=== PATIENT | male | born 1960 | race Caucasian/White ===

== ENCOUNTER 2016-05-04 07:05 | Emergency (ER) | payer OTHER ==
[2016-05-04 09:01] LABS: Hematocrit 43 % (42-52); Hemoglobin 14.4 g/dl (14.0-18.0); Mean Corpuscular HGB Conc 34 g/dl (31-36); Mean Corpuscular Hemoglobin 29 pg (27-31); Mean Corpuscular Volume 86 fL (80-94); Mean Platelet Volume 8 um3 (7.4-10.4); Red Blood Count 4.95 10^6/ul (4.0-5.4); Red Cell Distribution Width 14 % (10.5-15); White Blood Count 5.7 10^3/ul (3.5-10.8)
[2016-05-04 09:11] LABS: Urine Bilirubin Negative (Negative); Urine Glucose Negative (Negative); Urine Nitrite Negative (Negative)
[2016-05-04 09:19] LABS: BUN/Creatinine Ratio 24.5 (8-20); C Reactive Protein 2.46 mg/L (< 5.00); Calcium 9.3 mg/dL (8.6-10.3); EGFR Non-African American 82.4 (>60); Globulin 2.9 g/dL (2-4); Total Bilirubin 0.5 mg/dL (0.2-1.0); Total Protein 6.9 g/dL (6.4-8.9)
[2016-05-04 09:37] VITALS: BP 123/76
--- NOTE | 2016-05-04 10:36 | ED ---
Tamara Pinedo Rebecca, scribed for Etienne Rand MD on 05/04/16 at 0741 . Throat Pain/Nasal Congestion - HPI Summary HPI Summary: Pt is a 56 y/o M BIBA who presents to ED c/o throat tightening, difficulty swallowing and mild SOB. Sx began suddenly this morning at 0600 and have been constant since onset. Sx improved approximately 30 minutes after onset. Sx aggravated by nothing, spontaneously improved but still slightly present. Additionally c/o mild sore throat. Denies N/V, fever, pruritis, swelling of the tongue and lips. No PMHx. No daily medications. Denies being exposed to anything novel this morning. - History of Current Complaint Chief Complaint: EDThroatPain Time Seen by Provider: 05/04/16 07:39 Hx Obtained From: Patient Onset/Duration: Sudden Onset, Lasting Hours - 2 hours ago, Still Present Severity: Mild Associated Signs And Symptoms: Positive: Dysphagia Cough: None - Allergies/Home Medications Allergies/Adverse Reactions: Allergies Allergy/AdvReac Type Severity Reaction Status Date / Time swedish dressing Allergy Diaphoresis Uncoded 05/04/16 07:29 Home Medications: Home Medications NK [No Home Medications Reported] 05/04/16 [History Confirmed 05/04/16] PMH/Surg Hx/FS Hx/Imm Hx Previously Healthy: Yes Endocrine/Hematology History: Denies: Hx Diabetes Cardiovascular History: Denies: Hx Hypercholesterolemia, Hx Hypertension - Surgical History Surgery Procedure, Year, and Place: KNEE SURGERY. ANKLE SURGERY Infectious Disease History: No Infectious Disease History: Denies: Traveled Outside the [place] in Last 30 Days - Family History Known Family History: Positive: Hypertension Negative: Diabetes - Social History Alcohol Use: None Substance Use Type: Reports: None Smoking Status (MU): Never Smoked Tobacco Review of Systems Negative: Fever Positive: Sore Throat - mild, Other - Dysphagia, throat tightening; Denies tongue or lip swelling Positive: Shortness Of Breath - mild Negative: Vomiting, Nausea Positive: Other - Denies pruritis All Other Systems Reviewed And Are Negative: Yes Physical Exam Triage Information Reviewed: Yes Vital Signs On Initial Exam: Initial Vitals Temp Pulse Resp BP Pulse Ox 98.3 F 53 14 149/86 96 05/04/16 07:10 05/04/16 07:10 05/04/16 07:10 05/04/16 07:10 05/04/16 07:10 Vital Signs Reviewed: Yes Appearance: Positive: Well-Appearing Skin: Positive: Warm, Skin Color Reflects Adequate Perfusion, Dry Head/Face: Positive: Normal Head/Face Inspection Eyes: Positive: EOMI, JACQUELYN ENT: Positive: Normal ENT inspection Neck: Positive: Supple, Nontender Respiratory/Lung Sounds: Positive: Clear to Auscultation, Breath Sounds Present Cardiovascular: Positive: RRR, Pulses are Symmetrical in both Upper and Lower Extremities Abdomen Description: Positive: Nontender, Soft Bowel Sounds: Positive: Present Musculoskeletal: Positive: Normal, Strength/ROM Intact Neurological: Positive: Normal, Sensory/Motor Intact, Alert, Oriented to Person Place, Time Psychiatric: Positive: Normal, Affect/Mood Appropriate - [place] Coma Scale Coma Scale Total: 15 Diagnostics - Vital Signs Vital Signs Temp Pulse Resp BP Pulse Ox 05/04/16 07:17 59 97 05/04/16 07:16 136/87 05/04/16 07:10 98.3 F 53 14 149/86 96 - Laboratory Lab Results: Lab Results 05/04/16 05/04/16 05/04/16 Range/Units 08:29 08:50 08:55 WBC 5.7 (3.5-10.8) 10^3/ul RBC 4.95 (4.0-5.4) 10^6/ul Hgb 14.4 (14.0-18.0) g/dl Hct 43 (42-52) % MCV 86 (80-94) fL MCH 29 (27-31) pg MCHC 34 (31-36) g/dl RDW 14 (10.5-15) % Plt Count 180 (150-450) 10^3/ul MPV 8 (7.4-10.4) um3 Neut % (Auto) 68.0 (38-83) % Lymph % (Auto) 21.6 L (25-47) % [place]cd[place] % (Auto) 7.4 (1-9) % Eos % (Auto) 1.9 (0-6) % Baso % (Auto) 1.1 (0-2) % Absolute Neuts (auto) 3.9 (1.5-7.7) 10^3/ul Absolute Lymphs (auto) 1.2 (1.0-4.8) 10^3/ul Absolute Monos (auto) 0.4 (0-0.8) 10^3/ul Absolute Eos (auto) 0.1 (0-0.6) 10^3/ul Absolute Basos (auto) 0.1 (0-0.2) 10^3/ul Absolute Nucleated RBC 0 10^3/ul Nucleated RBC % 0 Sodium 139 (133-145) mmol/L Potassium 4.0 (3.5-5.0) mmol/L Chloride 108 (101-111) mmol/L Carbon Dioxide 27 (22-32) mmol/L Anion Gap 4 (2-11) mmol/L BUN 23 (6-24) mg/dL Creatinine 0.94 (0.67-1.17) mg/dL Est GFR ( Amer) 106.0 (>60) Est GFR (Non-Af Amer) 82.4 (>60) BUN/Creatinine Ratio 24.5 H (8-20) Glucose 119 H (70-100) mg/dL Calcium 9.3 (8.6-10.3) mg/dL Total Bilirubin 0.50 (0.2-1.0) mg/dL AST 16 (13-39) U/L ALT 15 (7-52) U/L Alkaline Phosphatase 53 (34-104) U/L C-Reactive Protein 2.46 (< 5.00) mg/L Total Protein 6.9 (6.4-8.9) g/dL Albumin 4.0 (3.2-5.2) g/dL Globulin 2.9 (2-4) g/dL Albumin/Globulin Ratio 1.4 (1-3) Urine Color Yellow Urine Appearance Cloudy Urine pH 7.0 (5-9) Ur Specific [place] 1.021 (1.010-1.030) Urine Protein Negative (Negative) Urine Ketones Negative (Negative) Urine Blood Negative (Negative) Urine Nitrate Negative (Negative) Urine Bilirubin Negative (Negative) Urine Urobilinogen Negative (Negative) Ur Leukocyte Esterase Negative (Negative) Urine Glucose Negative (Negative) Group A Strep Rapid (Negative) 05/04/16 Range/Units 08:56 WBC (3.5-10.8) 10^3/ul RBC (4.0-5.4) 10^6/ul Hgb (14.0-18.0) g/dl Hct (42-52) % MCV (80-94) fL MCH (27-31) pg MCHC (31-36) g/dl RDW (10.5-15) % Plt Count (150-450) 10^3/ul MPV (7.4-10.4) um3 Neut % (Auto) (38-83) % Lymph % (Auto) (25-47) % Mcdonough % (Auto) (1-9) % Eos % (Auto) (0-6) % Baso % (Auto) (0-2) % Absolute Neuts (auto) (1.5-7.7) 10^3/ul Absolute Lymphs (auto) (1.0-4.8) 10^3/ul Absolute Monos (auto) (0-0.8) 10^3/ul Absolute Eos (auto) (0-0.6) 10^3/ul Absolute Basos (auto) (0-0.2) 10^3/ul Absolute Nucleated RBC 10^3/ul Nucleated RBC % Sodium (133-145) mmol/L Potassium (3.5-5.0) mmol/L Chloride (101-111) mmol/L Carbon Dioxide (22-32) mmol/L Anion Gap (2-11) mmol/L BUN (6-24) mg/dL Creatinine (0.67-1.17) mg/dL Est GFR ( Amer) (>60) Est GFR (Non-Af Amer) (>60) BUN/Creatinine Ratio (8-20) Glucose (70-100) mg/dL Calcium (8.6-10.3) mg/dL Total Bilirubin (0.2-1.0) mg/dL AST (13-39) U/L ALT (7-52) U/L Alkaline Phosphatase (34-104) U/L C-Reactive Protein (< 5.00) mg/L Total Protein (6.4-8.9) g/dL Albumin (3.2-5.2) g/dL Globulin (2-4) g/dL Albumin/Globulin Ratio (1-3) Urine Color Urine Appearance Urine pH (5-9) Ur Specific [place] (1.010-1.030) Urine Protein (Negative) Urine Ketones (Negative) Urine Blood (Negative) Urine Nitrate (Negative) Urine Bilirubin (Negative) Urine Urobilinogen (Negative) Ur Leukocyte Esterase (Negative) Urine Glucose (Negative) Group A Strep Rapid Negative (Negative) Result Diagrams: 05/04/16 08:50 05/04/16 08:29 Lab Statement: Any lab studies that have been ordered have been reviewed, and results considered in the medical decision making process. EENT Course/Dx - Course Course Of Treatment: Before discharge patient wnl. No swelling of the tongue or lips, no difficulty swallowig, no drooling, no trismus. Assessment/Plan: Pt is a 56 y/o M BIBA who presents to ED c/o throat tightening , difficulty swallowing and mild SOB. Sx began suddenly this morning at 0600 and have been constant since onset. Sx improved approximately 30 minutes after onset. Sx aggravated by nothing, spontaneously improved but still slightly present. Additionally c/o mild sore throat. Denies N/V, fever, pruritis, swelling of the tongue and lips. he denies any drooling or difficulty swalloing at this time. He is able to drink w/o difficulty. No PMHx. No daily medications. Denies being exposed to anything novel this morning. Bloodwork found to be w/in normal limits except for lymphocytes of 21, glucose of 119. Urinalysis negative and rapid strep negative. In the ED course, pt remained asymptomatic and has not had any other episodes of dysphagia or sore throat. The pt did not have an allergic rxn seeing as how he did not have any swelling of the tongue, swelling of the lips and no itching or hives. At this point, it is unknown why the pt had this episode of dysphagia. However, the sx have resolved and only lasted for half an hour. The pt was observed for a couple hours in the ED and sx did not return. At this point, pt will be D/C to home and was advised to return to ED if he develops any other similar episodes, hives , swelling of the tongue, swelling of the lips, or feeling like his throat is closing. He understandsand agrees. I discussed all the findings and test results with the patient. Patient was instructed to return to the emergency room immediately if any of the symptoms return or worsens. Plan of care was discussed with the patient and understands and agrees. All questions were answered at patient satisfaction. There were no further complaints or concerns. Lung exam before discharge: CTA B/L. Good air exchange. No wheezing or crackles heard. CVS: S1 and S2 present. No murmurs appreciated. Patient is alert and oriented x 3. Patient is hemodynamically stable. Patient will be discharged home with follow up integrity engineer in the next 2-3 days - Differential Diagnoses Differential Diagnoses: Epiglottitis, Foreign Body, Jamie's Angina, Pharyngitis , Sinusitis, Tonsilitis - Diagnoses Provider Diagnoses: Pharyngitis, Dysphagia Discharge - Discharge Plan Condition: Stable Disposition: HOME Patient Education Materials: Pharyngitis (ED), Dysphagia (ED) Referrals: Non Staff,Doctor [Primary Care Provider] - 3 Days (Follow up with your primary care physician in the next 3 days. ) Additional Instructions: Return to the ED is you experience any other similar episodes, hives, swelling of the tongue, swelling of the lips, or feeling like your throat is closing. The documentation as recorded by the Tamara arce Rebecca accurately reflects the service I personally performed and the decisions made by me, Etienne Rand MD.
== END 2016-05-04 09:48 | disposition home or self-care (01) ==
LOC: ED 07:05
DX: J02.9 Acute pharyngitis, unspecified (principal); R13.10 Dysphagia, unspecified
CPT/HCPCS: 36415; 80053; 81003; 85025; 86140; 87651; 99283

== ENCOUNTER 2018-04-10 11:55 | Emergency (ER) | payer OTHER ==
[2018-04-10 12:16] VITALS: BP 122/82
--- NOTE | 2018-04-10 15:44 | ED ---
Abdominal Pain/Male - HPI Summary HPI Summary: 58-year-old otherwise healthy male presents with 3 weeks of a lump/bulge in his left inguinal area. He states that it's sometimes gets hard and bigger. Right now it is not bothering him and also. Sometimes it causes slight pain. It has not affected his ability to urinate. He has no other abdominal pain, nausea, vomiting or diarrhea. He had no injury to the area. He is a twin brother that also had an inguinal hernia. - History of Current Complaint Chief Complaint: UCAbdominalPain Stated Complaint: PERSONAL Time Seen by Provider: 04/10/18 14:30 Hx Obtained From: Patient Pain Intensity: 3 Pain Scale Used: 0-10 Numeric - Allergies/Home Medications Allergies/Adverse Reactions: Allergies Allergy/AdvReac Type Severity Reaction Status Date / Time portuguese dressing Allergy Diaphoresis Uncoded 04/10/18 12:16 PMH/Surg Hx/FS Hx/Imm Hx Previously Healthy: Yes Endocrine/Hematology History: Denies: Hx Diabetes Cardiovascular History: Denies: Hx Hypercholesterolemia, Hx Hypertension - Surgical History Surgery Procedure, Year, and Place: KNEE SURGERY. ANKLE SURGERY Infectious Disease History: No Infectious Disease History: Denies: Traveled Outside the [place] in Last 30 Days - Family History Known Family History: Positive: Hypertension, Other - twin brother with inguinal hernia repair Negative: Diabetes - Social History Occupation: Employed Full-time Alcohol Use: None Substance Use Type: Reports: None Smoking Status (MU): Never Smoked Tobacco Review of Systems Constitutional: Negative Cardiovascular: Negative Respiratory: Negative Positive: Abdominal Pain. Negative: Vomiting, Diarrhea, Nausea Negative: dysuria, discharge, flank pain Musculoskeletal: Negative All Other Systems Reviewed And Are Negative: Yes Physical Exam Triage Information Reviewed: Yes Vital Signs On Initial Exam: Initial Vitals Temp Pulse Resp BP Pulse Ox 98.4 F 78 18 122/82 100 04/10/18 12:11 04/10/18 12:11 04/10/18 12:11 04/10/18 12:11 04/10/18 12:11 Vital Signs Reviewed: Yes Appearance: Positive: Well-Appearing, No Pain Distress, Well-Nourished Skin: Positive: Warm, Skin Color Reflects Adequate Perfusion, Dry Head/Face: Positive: Normal Head/Face Inspection Eyes: Positive: Normal ENT: Positive: Normal ENT inspection Neck: Positive: Supple Respiratory/Lung Sounds: Positive: Clear to Auscultation Cardiovascular: Positive: RRR Abdomen Description: Positive: Soft, Other: - Soft, easily reducible left inguinal hernia with 1.5 cm Void felt after reduction Male Genital Exam: Positive: Normal Genitalia. Negative: Scrotum Tenderness (R) , Scrotum Tenderness (L), Testicular Tenderness (R), Testicular Tenderness (L) Musculoskeletal: Positive: Strength/ROM Intact Neurological: Positive: Alert, Oriented to Person Place, Time Psychiatric: Positive: Normal Diagnostics - Vital Signs Vital Signs Temp Pulse Resp BP Pulse Ox 04/10/18 12:11 98.4 F 78 18 122/82 100 - Laboratory Lab Results: Lab Results 04/10/18 Range/Units 13:35 POC Urine Color Dark yellow POC Urine Clarity Clear POC Urine pH 6.5 (5-9) POC Ur Specif [place] 1.025 (1.010-1.030) POC Urine Protein Negative (Negative) POC Ur Glucose (UA) Negative (Negative) POC Urine Ketones Negative (Negative) POC Urine Blood Negative (Negative) POC Urine Nitrite Negative (Negative) POC Urine Bilirubin Negative (Negative) POC Urine Urobilinogen 0.2 (Negative) POC U Leukocyte Esteras Negative (Negative) Lab Statement: Any lab studies that have been ordered have been reviewed, and results considered in the medical decision making process. Abdominal Pain Fem Course/Dx - Course Course Of Treatment: Nurse's notes reviewed. Soft, easily reducible left inguinal hernia that is not causing pain at this point. He will use Tylenol, ibuprofen and follow-up with surgery on an outpatient basis. He was taught how to reduce the hernia and what the warning signs of incarceration/strangulation are. - Diagnoses Differential Diagnosis/HQI/PQRI: Other - Epididymitis, inguinal hernia, diverticulitis, testicular torsion Provider Diagnoses: Reducible left inguinal hernia Discharge - Sign-Out/Discharge Documenting (check all that apply): Patient Departure All imaging exams completed and their final reports reviewed: No Studies - Discharge Plan Condition: Improved Disposition: HOME Patient Education Materials: Inguinal Hernia (ED) Referrals: Domenico Mendez MD [Medical Doctor] - Additional Instructions: Call for an appt today with the surgeon to have this fixed. Return with uncontrolled pain, stuck out/red/swollen, worse or other concerns as discussed. - Billing Disposition and Condition Condition: IMPROVED Disposition: Home - Attestation Statements Document Initiated by Scribe: No
== END 2018-04-10 14:43 | disposition home or self-care (01) ==
LOC: UCEAST 11:55
DX: K40.90 Unilateral inguinal hernia, without obstruction or gangrene, not specified as recurrent (principal); Z91.09 Other allergy status, other than to drugs and biological substances
CPT/HCPCS: 81003; 99211; G0463